=== PATIENT | male | born 1985 | race Hispanic/Latino ===

== ENCOUNTER 2020-09-07 20:16 | Emergency (ER) | payer OTHER ==
[2020-09-07] MEDS ORDERED: Sodium Chloride 0.9% 1,000 ML ONE (20:35)
== END 2020-09-07 20:55 | disposition left against medical advice (07) ==
LOC: NAV ERS 20:16
DX: R00.0 Tachycardia, unspecified (principal); F17.210 Nicotine dependence, cigarettes, uncomplicated
CPT/HCPCS: 99282; J7050